=== PATIENT | male | born 1995 | race Caucasian/White ===

== ENCOUNTER 2016-09-27 17:11 | Emergency (ER) | payer OTHER ==
[~2016-09-27] VITALS: Ht 172.7 cm; Wt 104.3 kg
[2016-09-27 17:32] LABS: ABSOLUTE NEUTROPHILS 10.7 thou/uL (1.4-8.2); BASOPHILS 0.7 % (0.0-2.0); EOSINOPHILS 2.4 % (0.0-3.0); HEMATOCRIT 45.7 % (42.0-52.0); HEMOGLOBIN 15.6 gm/dL (14.0-18.0); LYMPHOCYTES 17.9 % (24.0-44.0); MCH 29.2 pg (26.0-34.0); MCHC 34.1 g/dL (28.0-37.0); MCV 85.7 fL (80.0-100.0); MONOCYTES 9.3 % (1.0-8.0); PLATELET COUNT 283 thou/uL (150-400); POLYS 69.7 % (36.0-66.0); RBC 5.33 mil/uL (4.50-6.00); RDW 13.7 % (10.5-14.5); WBC 15.3 thou/uL (4.0-11.0)
[2016-09-27 17:45] LABS: CALCIUM 9.2 mg/dL (8.5-10.1); POTASSIUM 3.2 mmol/L (3.5-5.1)
[2016-09-27 17:55] LABS: MANUAL DIFF NO
[2016-09-27 20:10] VITALS: BP 143/79
== END 2016-09-27 20:23 | disposition short-term general hospital (02) ==
LOC: ER 17:11
PROVIDERS: Nurse Practitioner
DX: S11.91XA Laceration without foreign body of unspecified part of neck, initial encounter (principal); F15.10 Other stimulant abuse, uncomplicated; W26.8XXA Contact with other sharp object(s), not elsewhere classified, initial encounter; Y93.89 Activity, other specified; Y92.89 Other specified places as the place of occurrence of the external cause; Y99.0 Civilian activity done for income or pay